=== PATIENT | male | born 1950 | race Asian ===

== ENCOUNTER 2016-05-06 12:21 | Outpatient (CLI) | payer OTHER ==
[2016-05-06 13:28] LABS: PLATELET COUNT 270 K/uL (142-355)
[2016-05-06 13:39] LABS: POTASSIUM 4.4 mmol/L (3.6-5.2); SODIUM 136 mmol/L (136-145)
== END 2016-05-06 13:21 | disposition home or self-care (01) ==
LOC: LABW 12:21
PROVIDERS: Internal Medicine Cardiovascular Disease
DX: I42.8 Other cardiomyopathies (principal); I10 Essential (primary) hypertension; Z79.899 Other long term (current) drug therapy; R06.02 Shortness of breath
CPT/HCPCS: 36415; 80048; 83880; 85027

== ENCOUNTER 2016-05-13 09:51 | Outpatient (CLI) | payer OTHER | END 2016-05-13 19:31 | disposition home or self-care (01) | LOC: RESP 09:51 | DX: I42.8 Other cardiomyopathies (principal) | CPT/HCPCS: 93306 ==

== ENCOUNTER 2019-02-01 09:27 | Outpatient (CLI) | payer OTHER | END 2019-02-01 23:50 | disposition home or self-care (01) | LOC: RESP 09:27 → NM 02-02 08:30 | DX: I42.8 Other cardiomyopathies (principal) | CPT/HCPCS: 93306 ==

== ENCOUNTER 2019-02-15 10:07 | Outpatient (CLI) | payer OTHER ==
[2019-02-15 10:55] LABS: POTASSIUM 3.6 mmol/L (3.6-5.2)
== END 2019-02-15 19:10 | disposition home or self-care (01) ==
LOC: LABW 10:07
PROVIDERS: Internal Medicine Cardiovascular Disease
DX: Z79.899 Other long term (current) drug therapy (principal); I42.8 Other cardiomyopathies
CPT/HCPCS: 36415; 80048; 83880

== ENCOUNTER 2019-11-27 10:40 | Outpatient (CLI) | payer OTHER | END 2019-11-27 23:59 | disposition home or self-care (01) | LOC: US 10:40 | DX: R09.89 Other specified symptoms and signs involving the circulatory and respiratory systems (principal) ==

== ENCOUNTER 2020-06-05 15:07 | Outpatient (CLI) | payer OTHER ==
[2020-06-05 15:29] LABS: PLATELET COUNT 350 K/uL (142-355)
[2020-06-05 15:45] LABS: POTASSIUM 3.5 mmol/L (3.6-5.2)
== END 2020-06-05 22:00 | disposition home or self-care (01) ==
LOC: LABW 15:07
PROVIDERS: ATTEND Internal Medicine Cardiovascular Disease
DX: Z79.899 Other long term (current) drug therapy (principal); R06.09 Other forms of dyspnea
CPT/HCPCS: 36415; 80053; 80061; 83880; 85027

== ENCOUNTER 2020-12-27 13:46 | Outpatient (CLI) | payer OTHER | END 2020-12-27 22:04 | disposition home or self-care (01) | LOC: RESP 13:46 | PROVIDERS: ATTEND Internal Medicine Cardiovascular Disease | DX: I10 Essential (primary) hypertension (principal); R09.89 Other specified symptoms and signs involving the circulatory and respiratory systems ==

== ENCOUNTER 2020-12-30 08:43 | Outpatient (CLI) | payer OTHER | END 2020-12-30 19:20 | disposition home or self-care (01) | LOC: US 08:43 | PROVIDERS: ATTEND Internal Medicine Cardiovascular Disease | DX: I10 Essential (primary) hypertension (principal); R09.89 Other specified symptoms and signs involving the circulatory and respiratory systems ==

== ENCOUNTER 2021-07-02 10:14 | Outpatient (CLI) | payer OTHER ==
[2021-07-02 10:43] LABS: PLATELET COUNT 169 K/uL (142-355)
[2021-07-02 10:58] LABS: POTASSIUM 3.1 mmol/L (3.6-5.2)
== END 2021-07-02 19:25 | disposition home or self-care (01) ==
LOC: LABW 10:14
PROVIDERS: ATTEND Internal Medicine Cardiovascular Disease
DX: Z79.899 Other long term (current) drug therapy (principal)
CPT/HCPCS: 36415; 80053; 80061; 85027